=== PATIENT | female | born 1950 | race American Indian/Alaskan Native ===

== ENCOUNTER 2018-01-20 21:10 | Emergency (ER) | payer MEDICARE, MEDICAID ==
[2018-01-20 21:14] VITALS: BP 110/70
--- NOTE | 2018-01-20 22:15 | Cat Scan Report ---
FINAL REPORT PROCEDURE: CT HEAD/BRAIN WO CON TECHNIQUE: Computerized tomography of the head was performed without contrast material. HISTORY: headache with pressure COMPARISON: No prior studies are available for comparison. FINDINGS: Skull and scalp: Normal. Paranasal sinuses: Normal. Ventricles and subarachnoid spaces: Normal. Cerebrum: No evidence of hemorrhage, acute infarction or mass . Cerebellum and brainstem: No evidence of hemorrhage, acute infarction or mass. Vasculature: Normal. Comments: None. IMPRESSION: Normal Examination
[2018-01-20 22:19] LABS: Basophils % (Auto) 0.5 % (0.0-1.8); Eosinophils # (Auto) 0.1 K/mm3 (0.0-0.4); Eosinophils % (Auto) 1.3 % (0.0-4.3); Hematocrit 40.5 % (30.3-42.9); Hemoglobin 13.5 gm/dl (10.1-14.3); Lymphocytes # (Auto) 1.2 K/mm3 (1.2-5.4); Lymphocytes % (Auto) 13.3 % (13.4-35.0); Mean Corpuscular HGB Conc 33 % (30-34); Mean Corpuscular Hemoglobin 34 pg (28-32); Mean Corpuscular Volume 101 fl (79-97); Monocytes # (Auto) 0.6 K/mm3 (0.0-0.8); Monocytes % (Auto) 6.3 % (0.0-7.3); Platelet Count 313 K/mm3 (140-440); Red Cell Distribution Width 13.4 % (13.2-15.2)
[2018-01-20 22:23] LABS: BUN/Creatinine Ratio 18; Blood Urea Nitrogen 14 mg/dL (7-17); Calcium 8.9 mg/dL (8.4-10.2); Hemolysis Index 7
[2018-01-21] MEDS ORDERED: FIORICET PO ONE (01:15)
[2018-01-21] MEDS ORDERED: K-DUR PO ONE (01:18)
--- NOTE | 2018-01-21 01:21 | Emergency Department Report ---
HPI - General Chief Complaint: Headache Time Seen by Provider: 01/21/18 01:03 - [facility] HPI: Room 26 The patient is a 67-year-old female presented with a chief complaint of headache. The patient states for one month she's had intermittent pounding headache feels like a knife the evening to her head and ears. Patient denies any preceding trauma. Patient states occasionally she has nausea and vomiting as well as mild pain. Patient denies any history of fever. The patient currently gets her headache a score of 8/10 Location: [See above] Duration: Intermittent times one month Quality: Pounding, sharp like a knife Severity:8/10 Modifying factors: [see above] Context: [see above] Mode of transportation: [not driving] ED Past Medical Hx - Past Medical History Hx Hypertension: Yes Hx Heart Attack/AMI: Yes (Stent) - Surgical History Past Surgical History?: Yes Additional Surgical History: Cardiac Stent - Family History Family history: no significant - Social History Smoking Status: Former Smoker (none 3 years) Substance Use Type: Marijuana - Medications Home Medications: Home Medications Medication Instructions Recorded Confirmed Last Taken Type AtorvaSTATin [Lipitor] 80 mg PO QDAY #60 tab 01/21/18 Unknown Rx Butalb/Acetamin/Caff 50-325-40 1 - 2 tab PO Q8HR PRN #20 tablet 01/21/18 Unknown Rx [Fioricet] Metoprolol [Lopressor TAB] 100 mg PO QDAY #60 tablet 01/21/18 Unknown Rx amLODIPine [Norvasc] 5 mg PO DAILY #90 tab 01/21/18 Unknown Rx ED Review of Systems ROS: Stated complaint: H/A; N/V Other details as noted in HPI Constitutional: denies: fever Eyes: denies: eye pain ENT: dental pain, hearing loss Respiratory: no symptoms reported Cardiovascular: denies: chest pain Endocrine: no symptoms reported Gastrointestinal: nausea, vomiting Genitourinary: denies: dysuria Musculoskeletal: denies: back pain Neurological: headache Physical Exam - Physical Exam Vital Signs: Vital Signs 01/20/18 01/21/18 21:13 00:39 Temperature 99.3 F Pulse Rate 81 Respiratory 18 14 Rate Blood Pressure 110/70 O2 Sat by Pulse 96 98 Oximetry Physical Exam: GENERAL: The patient is well-developed well-nourished female lying on stretcher not appearing to be in acute distress. [] HEENT: Normocephalic. Atraumatic. Extraocular motions are intact. Patient has moist mucous membranes. NECK: Supple. No meningitic signs are noted. Trachea midline CHEST/LUNGS: Clear to auscultation. There is no respiratory distress noted. HEART/CARDIOVASCULAR: Regular. There is no tachycardia. There is no gallop rub or murmur. ABDOMEN: Abdomen is soft, nontender. Patient has normal bowel sounds. There is no abdominal distention. SKIN: There is no rash. There is no edema. There is no diaphoresis. NEURO: The patient is awake, alert, and oriented. The patient is cooperative. The patient has no focal neurologic deficits. The patient has normal speech and gait. Cranial nerves II through XII grossly intact, no drift MUSCULOSKELETAL :There is no evidence of acute injury. ED Course Vital Signs 01/20/18 01/21/18 21:13 00:39 Temperature 99.3 F Pulse Rate 81 Respiratory 18 14 Rate Blood Pressure 110/70 O2 Sat by Pulse 96 98 Oximetry ED Medical Decision Making - Lab Data Result diagrams: 01/20/18 21:29 01/20/18 21:29 Laboratory Tests 01/20/18 01/20/18 21:29 21:29 WBC 8.9 RBC 4.00 Hgb 13.5 Hct 40.5 MCV 101 H MCH 34 H MCHC 33 RDW 13.4 Plt Count 313 Lymph % (Auto) 13.3 L Thomas % (Auto) 6.3 Eos % (Auto) 1.3 Baso % (Auto) 0.5 Lymph # 1.2 Thomas # 0.6 Eos # 0.1 Baso # 0.0 Seg Neutrophils % 78.6 H Seg Neutrophils # 7.0 Sodium 144 Potassium 3.3 L Chloride 105.4 Carbon Dioxide 22 Anion Gap 20 BUN 14 Creatinine 0.8 Estimated GFR > 60 BUN/Creatinine Ratio 18 Glucose 124 H Calcium 8.9 - Radiology Data Radiology results: report reviewed (CT head), image reviewed (CT head) [facility] [address] [place] [address] Cat Scan Report Signed Patient: NATHALY CAMERON MR#: [id number] : [birth year] Acct:[id number] Age/Sex: 67 / F ADM Date: 01/20/18 Loc: ED Attending Dr : Ordering Physician: ED DOC, MD Date of Service: 01/20/18 Procedure(s): CT head /brain wo con Accession Number(s): [id number] cc: JERRY LAIRD MD FINAL REPORT PROCEDURE : CT HEAD/BRAIN WO CON TECHNIQUE: Computerized tomography of the head was performed without contrast material. HISTORY: headache with pressure COMPARISON : No prior studies are available for comparison. FINDINGS: Skull and scalp: Normal. Paranasal sinuses: Normal. Ventricles and subarachnoid spaces: Normal. Cerebrum: No evidence of hemorrhage, acute infarction or mass . Cerebellum and brainstem: No evidence of hemorrhage, acute infarction or mass. Vasculature: Normal. Comments: None. IMPRESSION: Normal Examination Transcribed By: CO Dictated By: JOLENE OSEI MD Electronically Authenticated By: JOLENE OSEI MD Signed Date/Time: 01/20/182213 DD/ 13 TD/TT: 2213 - Differential Diagnosis headache, migraine, cluster headache, Critical care attestation.: If time is entered above; I have spent that time in minutes in the direct care of this critically ill patient, excluding procedure time. ED Disposition Clinical Impression: Headache Disposition: - TO HOME OR SELFCARE Is pt being admited?: No Does the pt Need Aspirin: No Condition: Stable Instructions: Acute Headache (ED), Migraine Headache (ED) Additional Instructions: Return to the emergency department immediately should you develop worsening symptoms, fever, inability to tolerate food or liquid or any other concerns. Prescriptions: amLODIPine [Norvasc] 5 mg PO DAILY #90 tab AtorvaSTATin [Lipitor] 80 mg PO QDAY #60 tab Butalb/Acetamin/Caff 50-325-40 [Fioricet] 1 - 2 tab PO Q8HR PRN #20 tablet PRN Reason: Headache Metoprolol [Lopressor TAB] 100 mg PO QDAY #60 tablet Referrals: IGOR KEY MD [Staff Physician] - [facility] (Dr Key is a neurologist. Please follow up with him for further evaluation of your headaches) JONAS RUIZ MD [Staff Physician] - 3-5 Days (Dr. Ruiz is an civil laboratory technician (ear nose and throat doctor). Please follow up with her for further evaluation) Time of Disposition: :22
== END 2018-01-21 01:35 | disposition home or self-care (01) ==
LOC: ED 21:10
DX: R51 Headache (principal); R11.2 Nausea with vomiting, unspecified; I10 Essential (primary) hypertension; F12.10 Cannabis abuse, uncomplicated; I25.2 Old myocardial infarction; Z87.891 Personal history of nicotine dependence; Z95.818 Presence of other cardiac implants and grafts
CPT/HCPCS: 36415; 70450; 80048; 85025